=== PATIENT | female | born 1970 | race Two or more races ===

== ENCOUNTER 2024-03-28 10:29 | Inpatient (IN) | payer OTHER ==
[~2024-03-28] VITALS: Ht 154.9 cm; Wt 49.0 kg
[2024-03-28] MEDS ORDERED: SYNTHROID88 MCG PO (12:04)
--- NOTE | 2024-03-28 12:05 | NUR ---
PTE ALERTA Y ORIENTADA X3 QUIEN REFIERE VENIR YA QUE EN EL [facility] [place] [facility] SE REALIZO [facility] Y SALIR CON LAS PLAQUETAS [address]
[2024-03-28] MEDS ORDERED: RINGERS SOLUTION,LACTATED 1,000 ML IV SCH (12:45)
[2024-03-28 13:28] LABS: HEMATOCRIT 41.4 % (36.0-45.00); HEMOGLOBIN 14.2 g/dL (12.0-15.00); MEAN CELL VOLUME 88.7 fL (80.00-100.00); MEAN CORPUSCULAR HEMOGLOBIN 30.5 pg (27.00-32.0); MEAN CORPUSCULAR HGB CONC 34.4 g/dl (32.0-36.0); RED BLOOD COUNT 4.67 M/uL (4.00-6.00); RED CELL DISTRIBUTION WIDTH 13.9 % (11.5-14.5)
[2024-03-28 13:29] LABS: PLATELET COUNT 65 K/uL (150-450)
[2024-03-28 14:15] LABS: ALBUMIN 3.2 gm/dL (3.4-5.0); BILIRUBIN TOTAL 0.38 mg/dL (0.3-1.2); BILIRUBIN,CONJUGATED 0.12 mg/dL (0.0-0.2); BILIRUBIN,UNCONJUGATED 0.26 mg/dL (0.0-0.6); CALCIUM 8.8 mg/dL (8.5-10.1); CREATININE SERUM 0.74 mg/dL (0.55-1.02); GFR 81.48; GLOBULINA 3.3 G/DL (2.4-3.5); POTASSIUM 4.39 mEq/L (3.5-5.1); TOTAL PROTEIN 6.5 gm/dL (6.4-8.2)
[2024-03-28 17:55] LABS: PH,URINE 6.5 (5.0-8.0); URINE APPEARANCE Clear; URINE BILIRRUBIN Negative (NEGATIVE); URINE BLOOD Negative; URINE COLOR Yellow; URINE GLUCOSE Negative (NEGATIVE); URINE KETONE Trace (NEGATIVE); URINE LEUKOCYTE Trace; URINE NITRATE Negative; URINE PROTEIN 30 (NEGATIVE)
[2024-03-28 18:00] LABS: URINE BACTERIA 406.3 uL (0.0-1933); URINE EPITHELIAL CELLS 40.9 uL (0.0-38.8); URINE RBC 23.7 uL (0.0-20.8); URINE WBC 10.7 uL (0.0-23.2)
[2024-03-28] MEDS ORDERED: ONDANSETRON HCL 4 MG in 0.9 % SODIUM CHLORIDE 50 ML IV PRN (22:15)
[2024-03-28] MEDS ORDERED: 0.9 % SODIUM CHLORIDE 1,000 ML IV SCH (22:15)
[2024-03-28] MEDS ORDERED: ACETAMINOPHEN 325 MG TABLET PO PRN (22:15)
[2024-03-29 03:46] LABS: HEMATOCRIT 36.8 % (36.0-45.00); MEAN CELL VOLUME 87.2 fL (80.00-100.00); MEAN CORPUSCULAR HEMOGLOBIN 30.8 pg (27.00-32.0); MEAN CORPUSCULAR HGB CONC 35.3 g/dl (32.0-36.0); PLT IN CITRATE 39 K/uL (150-450); RED BLOOD COUNT 4.22 M/uL (4.00-6.00); RED CELL DISTRIBUTION WIDTH 13.6 % (11.5-14.5)
[2024-03-29 03:53] LABS: INR 1.06; PARTIAL THROMBOPLASTIN TIME 33.5 SECONDS (22.0-34.0); PROTHROMBIN TIME 11.5 SECONDS (9.0-11.5)
[2024-03-29 04:05] LABS: PLATELET COUNT 41 K/uL (150-450)
[2024-03-29 04:30] VITALS: BP 117/59
[2024-03-29 08:39] VITALS: BP 108/55
[2024-03-29] MEDS ORDERED: PANTOPRAZOLE SODIUM 40 MG/VIAL VIAL IV SCH (09:00)
[2024-03-29] MEDS ORDERED: ACETAMINOPHEN 500 MG GEL..CAP PO PRN (14:30)
[2024-03-29 17:45] VITALS: BP 113/70; O2SAT 98
[2024-03-30 02:37] VITALS: BP 97/60; O2SAT 98
[2024-03-30] MEDS ORDERED: PATIENTS OWN MEDICATION (MEDICAMENTO EN PISO) PO SCH (06:00)
[2024-03-30 07:00] LABS: MEAN CORPUSCULAR HGB CONC 34.3 g/dl (32.0-36.0); RED BLOOD COUNT 3.94 M/uL (4.00-6.00); RED CELL DISTRIBUTION WIDTH 13.8 % (11.5-14.5)
[2024-03-30 08:41] VITALS: BP 109/62
[2024-03-30 09:49] LABS: MEAN CORPUSCULAR HEMOGLOBIN 30.4 pg (27.00-32.0)
[2024-03-30 09:51] LABS: PLATELET COUNT 19 K/uL (150-450)
[2024-03-30 09:53] LABS: MANUAL PLATELET COUNT 10
[2024-03-30] MEDS ORDERED: LACTOBACILLUS ACIDOPHILUS 1 CAP CAP PO SCH (12:06)
[2024-03-30 21:34] VITALS: BP 110/64; O2SAT 99
[2024-03-31 01:56] VITALS: BP 118/54
[2024-03-31 03:00] LABS: HEMATOCRIT 34.4 % (36.0-45.00); MEAN CELL VOLUME 88.2 fL (80.00-100.00); MEAN CORPUSCULAR HEMOGLOBIN 30.8 pg (27.00-32.0); MEAN CORPUSCULAR HGB CONC 34.9 g/dl (32.0-36.0); RED CELL DISTRIBUTION WIDTH 13.8 % (11.5-14.5)
[2024-03-31 04:03] LABS: PLATELET COUNT 57 K/uL (150-450)
[2024-03-31 08:03] LABS: HEMATOCRIT 34.9 % (36.0-45.00); MEAN CELL VOLUME 87.6 fL (80.00-100.00); MEAN CORPUSCULAR HGB CONC 35.1 g/dl (32.0-36.0); RED BLOOD COUNT 3.99 M/uL (4.00-6.00); RED CELL DISTRIBUTION WIDTH 13.5 % (11.5-14.5)
[2024-03-31 09:00] LABS: HEMOGLOBIN 12.3 g/dL (12.0-15.00); MEAN CORPUSCULAR HEMOGLOBIN 30.8 pg (27.00-32.0)
[2024-03-31 09:02] LABS: PLATELET COUNT 51 K/uL (150-450)
[2024-03-31 09:05] LABS: MANUAL PLATELET COUNT 60
[2024-03-31 09:32] VITALS: BP 119/62
[2024-03-31 18:11] VITALS: BP 142/75; O2SAT 97
[2024-04-01 02:44] VITALS: BP 123/55
[2024-04-01 07:24] LABS: HEMATOCRIT 34.5 % (36.0-45.00); HEMOGLOBIN 12.1 g/dL (12.0-15.00); MEAN CORPUSCULAR HEMOGLOBIN 30.6 pg (27.00-32.0); MEAN CORPUSCULAR HGB CONC 35.2 g/dl (32.0-36.0); RED BLOOD COUNT 3.96 M/uL (4.00-6.00)
[2024-04-01 07:31] LABS: PLATELET COUNT 65 K/uL (150-450)
[2024-04-01 08:19] LABS: MANUAL PLATELET COUNT 90
[2024-04-01 08:29] VITALS: BP 132/73
== END 2024-04-01 12:36 | disposition home or self-care (01) | DRG 866 ==
LOC: ER 10:32 → MEDJ 22:14
PROVIDERS: Emergency Medicine; General Practice; Internal Medicine; ADMIT Internal Medicine; ATTEND Internal Medicine
PROC: BW40ZZZ Ultrasonography of Abdomen (ICD-10-PCS; principal; 2024-03-28)
PROC: 30233N1 Transfusion of Nonautologous Red Blood Cells into Peripheral Vein, Percutaneous Approach (ICD-10-PCS; 2024-03-30)
DX: A90 Dengue fever [classical dengue] (principal); D69.9 Hemorrhagic condition, unspecified